=== PATIENT | female | born 1960 ===

== ENCOUNTER → 2024-01-02 | Day surgery (SDC) | payer OTHER ==
[2023-12-28 14:24] VITALS: BP 136/85
[~2024-01-02] VITALS: Ht 149.9 cm; Wt 78.9 kg
[~2024-01-02] MED LIST: COZAAR50 MG PO; GABAPENTIN100 M2 PO; HYDROCHLOROTH12.5 MG; IBU600 MG PO; POVIDONE-IODINE 118 ML BOTT TOP ONE; ROLOXIFENE; SYNTHROID100 MCG PO; SYNTHROID75 MCG PO; TOPROL XL25 M1 PO; ZETIA10 MG PO
== END | disposition home or self-care (01) ==
LOC: ADM 12-28 11:15 → CIR.AMB 07:00
PROVIDERS: ATTEND Obstetrics & Gynecology Gynecology
DX: N84.0 Polyp of corpus uteri (principal); N72 Inflammatory disease of cervix uteri